=== PATIENT | female | born 1960 | race Caucasian/White ===

== ENCOUNTER 2021-11-05 18:14 | Inpatient (IN) | payer BC, OTHER ==
[~2021-11-05] VITALS: Ht 165.1 cm; Wt 137.8 kg
[2021-11-05] MEDS ORDERED: MORPHINE SULFATE 4 MG/ML SYR/VIAL IV ONE (18:30)
[2021-11-05] MEDS ORDERED: AZITHROMYCIN 500MG/ 250ML 250 ML IV ONE (18:30)
[2021-11-05] MEDS ORDERED: ASCORBIC ACID 500 MG TAB PO ONE (18:30)
[2021-11-05] MEDS ORDERED: ONDANSETRON HCL 4 MG/2 ML VIAL IV ONE (18:30)
[2021-11-05] MEDS ORDERED: ZINC SULFATE 220mg CAP or TAB PO ONE (18:30)
[2021-11-05] MEDS ORDERED: methylPREDNISolone SOD SUCC 125 MG/2 ML VL IV ONE (18:30)
[2021-11-05 19:13] LABS: Basophils # (auto) 0 10 ^3/uL (0-0.2); Basophils % (auto) 0.4 % (0.0-2.0); Eosinophils # (auto) 0 10 ^3/uL (0-0.8); Eosinophils % (auto) 0.4 % (0.0-7.0); Hematocrit 41.4 % (36.0-46.0); Hemoglobin 13.6 g/dL (12.2-16.2); Lymphocytes # (auto) 0.4 10 ^3/uL (0.4-5.4); Lymphocytes % (auto) 5.2 % (10.0-50.0); Mean Corpuscular Hemoglobin 29.2 pg (28.0-32.0); Mean Corpuscular Hgb Conc. 32.9 g/dL (32.0-36.0); Mean Corpuscular Volume 88.6 fL (80.0-100.0); Monocytes # (auto) 0.6 10 ^3/uL (0-1.3); Neutrophils # (auto) 6.1 10 ^3/uL (1.6-8.6); Red Blood Cells 4.67 10^6/uL (4.0-5.20); Red Cell Distribution Width 13.5 % (11.8-14.3); White Blood Cell 7.2 10^3/uL (4.4-10.8)
[2021-11-05 19:28] LABS: Albumin 3.7 g/dL (3.4-5.0); Calcium 8.6 mg/dL (8.5-10.1); Potassium 3.6 mmol/L (3.5-5.1)
[2021-11-05 19:32] LABS: BUN/Creatinine Ratio 9.8; Bilirubin, Total 0.5 mg/dL (0.2-1.0); Total Protein 7.8 g/dL (6.4-8.2)
[2021-11-05 19:34] LABS: Magnesium 1.8 mg/dL (1.6-2.6)
[2021-11-05 19:42] LABS: CRP High Sensitivity 2.2 mg/dL (< 0.3)
[2021-11-05] MEDS ORDERED: ONDANSETRON HCL 4 MG/2 ML VIAL IV PRN (22:30)
[2021-11-05] MEDS ORDERED: ACETAMINOPHEN 325 MG TAB PO PRN (22:30)
[2021-11-05] MEDS ORDERED: MORPHINE SULFATE INJ 2 MG/ml SYRG IV PRN (22:30)
[2021-11-05] MEDS ORDERED: NITROGLYCERIN 0.4 MG SL TAB SL PRN (22:30)
[2021-11-05] MEDS ORDERED: ALBUTEROL SULF 2.5 MG/0.5ML(0.5%) NEB SOLN NEB PRN (22:45)
[2021-11-05] MEDS ORDERED: IOHEXOL 350 MG/ML 100ML IJ ONE (23:07)
[2021-11-05 23:21] VITALS: BP 137/63
[2021-11-06 05:21] LABS: Basophils # (auto) 0 10 ^3/uL (0-0.2); Basophils % (auto) 0.3 % (0.0-2.0); Eosinophils # (auto) 0 10 ^3/uL (0-0.8); Hematocrit 40.4 % (36.0-46.0); Hemoglobin 13.4 g/dL (12.2-16.2); Lymphocytes # (auto) 0.4 10 ^3/uL (0.4-5.4); Lymphocytes % (auto) 6.1 % (10.0-50.0); Mean Corpuscular Hemoglobin 29.7 pg (28.0-32.0); Mean Corpuscular Hgb Conc. 33.1 g/dL (32.0-36.0); Mean Corpuscular Volume 89.8 fL (80.0-100.0); Monocytes # (auto) 0.2 10 ^3/uL (0-1.3); Neutrophils # (auto) 5.6 10 ^3/uL (1.6-8.6); Neutrophils % (auto) 90.6 % (37.0-80.0); Red Cell Distribution Width 13.1 % (11.8-14.3); White Blood Cell 6.1 10^3/uL (4.4-10.8)
[2021-11-06 05:41] LABS: Albumin 3.4 g/dL (3.4-5.0); Calcium 8.1 mg/dL (8.5-10.1); Potassium 4.6 mmol/L (3.5-5.1)
[2021-11-06 05:44] LABS: BUN/Creatinine Ratio 13.2
[2021-11-06 05:47] LABS: Bilirubin, Total 0.4 mg/dL (0.2-1.0); Total Protein 7.2 g/dL (6.4-8.2)
[2021-11-06] MEDS ORDERED: KETOROLAC TROMETH 30 MG/ML 1ML VIAL IV ONE (08:45)
[2021-11-06] MEDS ORDERED: LISINOPRIL 10 MG TAB PO SCH (10:00)
[2021-11-06] MEDS ORDERED: ENOXAPARIN SOD 40 MG/0.4 ML SYRINGE SC SCH (10:00)
[2021-11-06] MEDS: AZITHROMYCIN 500MG/ 250ML 250 ML IV SCH (10:43)
[2021-11-06] MEDS: MULTIPLE VITAMIN TAB PO SCH (10:45)
[2021-11-06] MEDS: DexAMETHasone SOD PHOS 10MG/1ML VIAL INJ IV SCH (10:45)
[2021-11-06] MEDS: ZINC SULFATE 220mg CAP or TAB PO SCH (10:46)
[2021-11-06] MEDS: ASCORBIC ACID 500 MG TAB PO SCH ×2 (10:47→22:16)
[2021-11-06] MEDS ORDERED: REMDESIVIR PER PHARMACY 0 ML IV SCH (11:15)
[2021-11-06] MEDS ORDERED: DEXTROSE (50%) 50ML SYRG IV PRN (13:15)
[2021-11-06 13:40] LABS: Cholesterol 152 mg/dL (< 200)
[2021-11-06 13:43] LABS: HDL Cholesterol 51 mg/dL (40-59); LDL Cholesterol 89 mg/dL (< 100); Triglycerides 61 mg/dL (< 150)
[2021-11-06] MEDS ORDERED: REMDESIVIR 200 MG in NS 210ml LOADING DOSE ADULT IV ONE (15:00)
[2021-11-06] MEDS: ACCU-CHEK COMFORT CURVE STRIP VI SCH ×2 (18:54→23:24)
[2021-11-06] MEDS: KETOROLAC TROMETH 30 MG/ML 1ML VIAL IV PRN (18:56)
[2021-11-06] MEDS: InsuLIN REG 1unit/0.01ml Soln (100units/ml) SC SCH ×2 (18:57→23:28)
[2021-11-06] MEDS ORDERED: LOSARTAN POTASSIUM 50 MG TAB PO ONE ×2 (21:15→22:45)
[2021-11-06 21:19] VITALS: BP 146/63
[2021-11-06 21:25] VITALS: BP 146/63
[2021-11-06] MEDS ORDERED: INFLUENZA QUAD 2021-2022 0.5 ML SYRG IM ONE (21:30)
[2021-11-06 22:00] VITALS: BP 146/63
[2021-11-06] MEDS ORDERED: INSULIN LANTUS (GLARGINE) 1 /0.01ml (100units/ml) SC SCH ×2 (22:00)
[2021-11-06] MEDS ORDERED: ERGOCALCIFEROL 50,000 UNIT(1.25MG) CAP PO SCH (22:00)
[2021-11-06] MEDS: ENOXAPARIN SOD 40 MG/0.4 ML SYRINGE SC SCH (22:17)
[2021-11-07 05:00] VITALS: BP 135/60
[2021-11-07 05:53] LABS: Albumin 3.4 g/dL (3.4-5.0); Calcium 8.5 mg/dL (8.5-10.1)
[2021-11-07 05:55] LABS: BUN/Creatinine Ratio 25.9
[2021-11-07 05:58] LABS: Bilirubin, Total 0.2 mg/dL (0.2-1.0); Total Protein 6.9 g/dL (6.4-8.2)
[2021-11-07] MEDS: ACCU-CHEK COMFORT CURVE STRIP VI SCH ×4 (06:03→23:30)
[2021-11-07] MEDS: KETOROLAC TROMETH 30 MG/ML 1ML VIAL IV PRN ×2 (06:04→17:15)
[2021-11-07] MEDS: InsuLIN REG 1unit/0.01ml Soln (100units/ml) SC SCH ×4 (06:06→23:23)
[2021-11-07] MEDS: ALBUTEROL SULF HFA 90MCG INH 200DOSE IN PRN ×2 (06:41→22:17)
[2021-11-07 09:00] VITALS: BP 139/73
[2021-11-07] MEDS: INSULIN LANTUS (GLARGINE) 1 /0.01ml (100units/ml) SC SCH ×2 (10:00→23:25)
[2021-11-07] MEDS: AZITHROMYCIN 500MG/ 250ML 250 ML IV SCH (12:08)
[2021-11-07] MEDS: ZINC SULFATE 220mg CAP or TAB PO SCH (12:09)
[2021-11-07] MEDS: LOSARTAN POTASSIUM 50 MG TAB PO SCH (12:09)
[2021-11-07] MEDS: DexAMETHasone SOD PHOS 10MG/1ML VIAL INJ IV SCH (12:09)
[2021-11-07] MEDS: ASCORBIC ACID 500 MG TAB PO SCH ×2 (12:11→21:04)
[2021-11-07] MEDS: MULTIPLE VITAMIN TAB PO SCH (12:11)
[2021-11-07] MEDS: ENOXAPARIN SOD 40 MG/0.4 ML SYRINGE SC SCH ×2 (12:11→21:04)
[2021-11-07 13:00] VITALS: BP 107/61
[2021-11-07] MEDS: REMDESIVIR 100mg 100 MG in SODIUM CHL 0.9% 230 ML IV SCH (15:01)
[2021-11-07 17:07] VITALS: BP 154/84
[2021-11-07 21:50] VITALS: BP 154/76
[2021-11-08 04:53] VITALS: BP 151/70
[2021-11-08] MEDS: InsuLIN REG 1unit/0.01ml Soln (100units/ml) SC SCH ×4 (06:04→23:18)
[2021-11-08] MEDS: ACCU-CHEK COMFORT CURVE STRIP VI SCH ×4 (06:09→23:32)
[2021-11-08] MEDS: KETOROLAC TROMETH 30 MG/ML 1ML VIAL IV PRN ×2 (06:15→17:41)
[2021-11-08 06:41] LABS: Potassium 4.5 mmol/L (3.5-5.1)
[2021-11-08 06:47] LABS: Albumin 3.1 g/dL (3.4-5.0); BUN/Creatinine Ratio 33.3; Bilirubin, Total 0.2 mg/dL (0.2-1.0); Calcium 8.6 mg/dL (8.5-10.1); Total Protein 6.4 g/dL (6.4-8.2)
[2021-11-08 08:42] VITALS: BP 144/72
[2021-11-08] MEDS: DexAMETHasone SOD PHOS 10MG/1ML VIAL INJ IV SCH (08:57)
[2021-11-08] MEDS: AZITHROMYCIN 500MG/ 250ML 250 ML IV SCH (08:57)
[2021-11-08] MEDS: ZINC SULFATE 220mg CAP or TAB PO SCH (08:57)
[2021-11-08] MEDS: ENOXAPARIN SOD 40 MG/0.4 ML SYRINGE SC SCH ×2 (08:58→21:27)
[2021-11-08] MEDS: ASCORBIC ACID 500 MG TAB PO SCH ×2 (08:58→21:26)
[2021-11-08] MEDS: LOSARTAN POTASSIUM 50 MG TAB PO SCH (08:58)
[2021-11-08] MEDS: MULTIPLE VITAMIN TAB PO SCH (08:58)
[2021-11-08] MEDS: INSULIN LANTUS (GLARGINE) 1 /0.01ml (100units/ml) SC SCH ×2 (09:04→23:31)
[2021-11-08] MEDS: ALBUTEROL SULF HFA 90MCG INH 200DOSE IN PRN (11:38)
[2021-11-08 13:00] VITALS: BP 161/82
[2021-11-08] MEDS: cloNIDine HCL 0.1 MG TAB PO PRN ×2 (13:02→22:24)
[2021-11-08] MEDS: REMDESIVIR 100mg 100 MG in SODIUM CHL 0.9% 230 ML IV SCH (14:16)
[2021-11-08 17:00] VITALS: BP 154/77
[2021-11-08 22:00] VITALS: BP_SYST 122; BP_SYST 174; BP_DIAS 77; BP_DIAS 79
[2021-11-09] VITALS (7 sets, daily range): BP systolic 118–156; BP diastolic 62–87
[2021-11-09] MEDS: KETOROLAC TROMETH 30 MG/ML 1ML VIAL IV PRN (05:27)
[2021-11-09] MEDS: InsuLIN REG 1unit/0.01ml Soln (100units/ml) SC SCH ×3 (05:29→17:10)
[2021-11-09] MEDS: ACCU-CHEK COMFORT CURVE STRIP VI SCH ×3 (05:38→17:12)
[2021-11-09] MEDS: ALBUTEROL SULF HFA 90MCG INH 200DOSE IN PRN ×2 (06:14→22:13)
[2021-11-09 06:42] LABS: Potassium 3.8 mmol/L (3.5-5.1)
[2021-11-09 06:51] LABS: Albumin 3.1 g/dL (3.4-5.0); BUN/Creatinine Ratio 30.4; Bilirubin, Total 0.2 mg/dL (0.2-1.0); Calcium 8.3 mg/dL (8.5-10.1); Total Protein 6.4 g/dL (6.4-8.2)
[2021-11-09] MEDS: DexAMETHasone SOD PHOS 10MG/1ML VIAL INJ IV SCH (08:43)
[2021-11-09] MEDS: AZITHROMYCIN 500MG/ 250ML 250 ML IV SCH (08:43)
[2021-11-09] MEDS: LOSARTAN POTASSIUM 50 MG TAB PO SCH (08:43)
[2021-11-09] MEDS: ZINC SULFATE 220mg CAP or TAB PO SCH (08:44)
[2021-11-09] MEDS: MULTIPLE VITAMIN TAB PO SCH (08:44)
[2021-11-09] MEDS: ENOXAPARIN SOD 40 MG/0.4 ML SYRINGE SC SCH ×2 (08:45→22:27)
[2021-11-09] MEDS: ASCORBIC ACID 500 MG TAB PO SCH ×2 (08:45→22:27)
[2021-11-09] MEDS: INSULIN LANTUS (GLARGINE) 1 /0.01ml (100units/ml) SC SCH ×2 (08:46→22:33)
[2021-11-09] MEDS: traMADol HCL 50 MG TAB PO PRN ×2 (12:22→14:59)
[2021-11-09] MEDS: REMDESIVIR 100mg 100 MG in SODIUM CHL 0.9% 230 ML IV SCH (14:59)
[2021-11-09] MEDS ORDERED: BLOO1KIT60 XX (16:55)
[2021-11-09] MEDS ORDERED: ERGO1CAP23 PO (16:55)
[2021-11-09] MEDS ORDERED: ATOR20TA50 PO (16:55)
[2021-11-09] MEDS ORDERED: ALBUAER3 IN (16:55)
[2021-11-09] MEDS ORDERED: ASPI1TAB20 PO (16:55)
[2021-11-09] MEDS ORDERED: METF-371 PO (16:55)
[2021-11-09] MEDS ORDERED: SEMA2INJ SC (16:55)
[2021-11-09] MEDS ORDERED: EMPA1TAB PO (16:55)
[2021-11-09] MEDS ORDERED: LANC-347 XX (16:55)
[2021-11-09] MEDS ORDERED: LOSA-69 PO (16:55)
[2021-11-09] MEDS ORDERED: BLOO-156 XX (16:55)
[2021-11-09] MEDS ORDERED: ALCOPAD63 XX (16:55)
[2021-11-10] MEDS: ACCU-CHEK COMFORT CURVE STRIP VI SCH ×3 (00:30→11:30)
[2021-11-10] MEDS: InsuLIN REG 1unit/0.01ml Soln (100units/ml) SC SCH ×3 (00:30→11:31)
[2021-11-10] MEDS: traMADol HCL 50 MG TAB PO PRN ×2 (00:35→09:08)
[2021-11-10 05:00] VITALS: BP 161/73
[2021-11-10 06:32] LABS: Albumin 3.3 g/dL (3.4-5.0); Calcium 8.5 mg/dL (8.5-10.1)
[2021-11-10 06:40] LABS: BUN/Creatinine Ratio 30.1; Bilirubin, Total 0.2 mg/dL (0.2-1.0); Total Protein 6.6 g/dL (6.4-8.2)
[2021-11-10 09:00] VITALS: BP 166/87
[2021-11-10] MEDS: DexAMETHasone SOD PHOS 10MG/1ML VIAL INJ IV SCH (09:36)
[2021-11-10] MEDS: LOSARTAN POTASSIUM 50 MG TAB PO SCH (09:37)
[2021-11-10] MEDS: ASCORBIC ACID 500 MG TAB PO SCH (09:37)
[2021-11-10] MEDS: MULTIPLE VITAMIN TAB PO SCH (09:37)
[2021-11-10] MEDS: ZINC SULFATE 220mg CAP or TAB PO SCH (09:37)
[2021-11-10] MEDS: ENOXAPARIN SOD 40 MG/0.4 ML SYRINGE SC SCH (09:38)
[2021-11-10] MEDS: INSULIN LANTUS (GLARGINE) 1 /0.01ml (100units/ml) SC SCH (09:39)
[2021-11-10] MEDS: ALBUTEROL SULF HFA 90MCG INH 200DOSE IN PRN (11:03)
[2021-11-10 12:40] VITALS: BP 166/87
[2021-11-10 13:00] VITALS: BP 158/69
[2021-11-10] MEDS: REMDESIVIR 100mg 100 MG in SODIUM CHL 0.9% 230 ML IV SCH (14:59)
[2021-11-10 16:19] LABS: Urine Bacteria FEW /hpf (None Seen); Urine Blood Negative /uL (Negative); Urine Hyaline Cast FEW /lpf (0 - 2); Urine Specific Gravity 1.024 (1.001-1.035); Urine WBC 2 /hpf (0 - 5)
== END 2021-11-10 18:00 | disposition home or self-care (01) | DRG 177 ==
LOC: ER 18:14 → EDBD 18:14 → TELE 22:26 → TELE-EAST 11-06 20:20
PROVIDERS: ADMIT Nurse Practitioner; ATTEND Internal Medicine
PROC: XW033E5 Introduction of Remdesivir Anti-infective into Peripheral Vein, Percutaneous Approach, New Technology Group 5 (ICD-10-PCS; principal; 2021-11-06)
DX: U07.1 COVID-19 (principal); J12.82 Pneumonia due to coronavirus disease 2019; J96.00 Acute respiratory failure, unspecified whether with hypoxia or hypercapnia; Z68.43 Body mass index [BMI] 50.0-59.9, adult; E11.9 Type 2 diabetes mellitus without complications; E66.01 Morbid (severe) obesity due to excess calories; K76.0 Fatty (change of) liver, not elsewhere classified; E55.9 Vitamin D deficiency, unspecified; I10 Essential (primary) hypertension; T78.3XXA Angioneurotic edema, initial encounter; E87.5 Hyperkalemia; Z90.49 Acquired absence of other specified parts of digestive tract; Z98.51 Tubal ligation status; Z71.3 Dietary counseling and surveillance; Z28.21 Immunization not carried out because of patient refusal
CPT/HCPCS: 36415; 71045; 71275; 80053; 80061; 81001; 82043; 82306; 82728; 82962; 83036; 83605; 83735; 84443; 84484; 85025; 85379; 86141; 87040; 90686; 93005; 94640; 96365; 96366; 96367; 96372; 96375; A4565; G0378; J1100; J1815; J1885; J2405